=== PATIENT | male | born 1970 | race African-American/Black ===

== ENCOUNTER 2021-12-08 02:02 | Emergency (ER) | payer OTHER ==
[2021-12-08 02:12] VITALS: BP 134/93; PULSE 97; RESP 18; TEMP 98.3; BMI 30.1
[2021-12-08] MEDS ORDERED: diphenhydrAMINE HCL 25 MG CAPSULE (FP) PO ONE ×2 (04:08→04:14)
[2021-12-08] MEDS ORDERED: FAMOTIDINE 20 MG TABLET PO ONE (04:09)
[2021-12-08] MEDS ORDERED: FAMOTIDINE 20 MG TABLET ONE (04:14)
== END 2021-12-08 04:56 | disposition home or self-care (01) ==
LOC: JER 02:02
DX: T78.40XA Allergy, unspecified, initial encounter (principal)
CPT/HCPCS: 99283-25